=== PATIENT | female | born 1935 | race Caucasian/White ===

== ENCOUNTER 2020-04-30 12:18 | Emergency (ER) | payer MEDICARE, MEDICAID ==
[~2020-04-30] VITALS: Ht 170.2 cm; Wt 97.1 kg
[2020-04-30] MEDS ORDERED: ARTIFICIAL TEAR1510 OPHTHALMIC (12:23)
[2020-04-30] MEDS ORDERED: NORVASC5 M1 PO (12:23)
[2020-04-30] MEDS ORDERED: LIPITOR 20 MG T20 M1 PO (12:23)
[2020-04-30] MEDS ORDERED: AYR50 ML NASAL (12:24)
[2020-04-30] MEDS ORDERED: DULCOLAX10 MG RECTAL (12:24)
[2020-04-30] MEDS ORDERED: VITAMIN D31250 MC1 PO (12:25)
[2020-04-30] MEDS ORDERED: ARICEPT10 M1 PO (12:26)
[2020-04-30] MEDS ORDERED: DEPAKOTE125 MG PO (12:26)
[2020-04-30] MEDS ORDERED: IMODIUM A-D2 MG PO (12:27)
[2020-04-30] MEDS ORDERED: LASIX 40 MG TAB40 MG PO (12:27)
[2020-04-30] MEDS ORDERED: MULTIVITAMINS PO (12:28)
[2020-04-30] MEDS ORDERED: MILK OF MA400 MG/5 M PO (12:28)
[2020-04-30] MEDS ORDERED: MEMANTINE HCL10 MG PO (12:28)
[2020-04-30] MEDS ORDERED: COZAAR100 MG PO (12:28)
[2020-04-30] MEDS ORDERED: KLOR-CON 10 ER10 MEQ PO (12:29)
[2020-04-30] MEDS ORDERED: PRADAXA75 MG PO (12:29)
[2020-04-30] MEDS ORDERED: NUEDEXTA 20-101 EACH PO (12:29)
[2020-04-30] MEDS ORDERED: TIZANIDINE HCL2 M1 PO (12:30)
[2020-04-30] MEDS ORDERED: SPIRONOLACTONE25 MG PO (12:30)
[2020-04-30] MEDS ORDERED: ONDANSETRON ODT4 MG PO (12:31)
[2020-04-30 13:17] LABS: ABSOLUTE BASOPHILS 0.1 thou/uL (0.0-0.2); ABSOLUTE LYMPHOCYTES 0.9 thou/uL (0.8-5.3); ABSOLUTE MONOCYTES 0.7 thou/uL (0.0-1.2); ABSOLUTE NEUTROPHILS 4.6 thou/uL (1.6-8.1); BASOPHILS 1.3 %; EOSINOPHILS 0.3 %; HEMATOCRIT 35.4 % (37.0-47.0); LYMPHOCYTES 13.8 %; MCHC 33.9 g/dL (28.0-37.0); MCV 88.6 fL (80.0-100.0); MONOCYTES 11.6 %; MPV 7.6 fl. (7.2-11.1); NUCLEATED RBCS 0 /100WBC; PLATELET COUNT* 270 thou/uL (150-400); RBC 3.99 mil/uL (4.20-5.00); WBC 6.3 thou/uL (4.0-11.0)
[2020-04-30 13:22] LABS: CALCIUM 8.8 mg/dL (8.5-10.1); CREATININE 1.1 mg/dL (0.6-1.3); POTASSIUM 4.2 mmol/L (3.5-5.1)
[2020-04-30 13:27] LABS: ALBUMIN 2.8 g/dL (3.4-5.0); TOTAL BILIRUBIN 0.3 mg/dL (<0.1-1.0); TOTAL PROTEIN 6.9 g/dL (6.4-8.2)
[2020-04-30 14:00] VITALS: BP 140/63
== END 2020-04-30 16:49 | disposition home or self-care (01) ==
LOC: M.ERS 12:18
PROVIDERS: Physician Assistant
DX: U07.1 COVID-19 (principal); I10 Essential (primary) hypertension; I48.91 Unspecified atrial fibrillation; Z88.1 Allergy status to other antibiotic agents; Z91.013 Allergy to seafood; Z79.899 Other long term (current) drug therapy; Z95.0 Presence of cardiac pacemaker

== ENCOUNTER 2020-05-03 13:08 | Inpatient (IN) | payer MEDICARE, MEDICAID ==
[~2020-05-03] VITALS: Ht 167.6 cm; Wt 92.5 kg
[2020-05-03 04:30] VITALS: BP 126/66
[~2020-05-03 13:08] MED LIST: ARICEPT10 M1 PO; ARTIFICIAL TEAR1510 OPHTHALMIC; AYR50 ML NASAL; COZAAR100 MG PO; DEPAKOTE125 MG PO; DULCOLAX10 MG RECTAL; IMODIUM A-D2 MG PO; KLOR-CON 10 ER10 MEQ PO; LASIX 40 MG TAB40 MG PO; LIPITOR 20 MG T20 M1 PO; MEMANTINE HCL10 MG PO; MILK OF MA400 MG/5 M PO; MULTIVITAMINS PO; NORVASC5 M1 PO; NUEDEXTA 20-101 EACH PO; ONDANSETRON ODT4 MG PO; PRADAXA75 MG PO; SPIRONOLACTONE25 MG PO; TIZANIDINE HCL2 M1 PO; VITAMIN D31250 MC1 PO
[2020-05-03 13:14] VITALS: BP 114/54
[2020-05-03 13:53] LABS: ABSOLUTE LYMPHOCYTES 1.2 thou/uL (0.8-5.3); ABSOLUTE MONOCYTES 0.4 thou/uL (0.0-1.2); ABSOLUTE NEUTROPHILS 3.1 thou/uL (1.6-8.1); BASOPHILS 0.5 %; EOSINOPHILS 0.1 %; HEMATOCRIT 36.3 % (37.0-47.0); MCH 29.8 pg (26.0-34.0); MCV 90.3 fL (80.0-100.0); MONOCYTES 7.9 %; MPV 7.8 fl. (7.2-11.1); NUCLEATED RBCS 0 /100WBC; PLATELET COUNT* 205 thou/uL (150-400); POLYS 66.5 %; RBC 4.02 mil/uL (4.20-5.00); RDW-CV 16.3 % (10.5-14.5); WBC 4.6 thou/uL (4.0-11.0)
[2020-05-03 14:02] LABS: CALCIUM 8.5 mg/dL (8.5-10.1); CREATININE 1.4 mg/dL (0.6-1.3)
[2020-05-03 14:05] LABS: APTT 35.8 Seconds (25.0-31.3); INR 1.1; PROTIME 11.9 Seconds (9.20-11.50)
[2020-05-03 14:09] LABS: URINE BILIRUBIN NEGATIVE (Negative); URINE BLOOD TRACE (Negative); URINE CLARITY CLEAR; URINE COLOR YELLOW; URINE GLUCOSE-RANDOM NEGATIVE (Negative); URINE KETONES NEGATIVE (Negative); URINE LEUKOCYTES-REFLEX TRACE (Negative); URINE NITRITE-REFLEX POSITIVE (Negative); URINE PROTEIN NEGATIVE (Negative); URINE UROBILINOGEN 0.2 E.U./dl (0.2-1.0)
[2020-05-03 14:13] LABS: ALBUMIN 2.4 g/dL (3.4-5.0); TOTAL BILIRUBIN 0.3 mg/dL (<0.1-1.0); TOTAL PROTEIN 6.5 g/dL (6.4-8.2)
[2020-05-03 14:14] LABS: INFLUENZA A ANTIGEN Negative (Negative); INFLUENZA B ANTIGEN Negative (Negative)
[2020-05-03 14:24] LABS: BACTERIA-REFLEX >30 Many /HPF (None Seen); CASTS None Seen /LPF (None Seen); CRYSTALS None Seen /LPF (None Seen); MUCUS 0-3 Light strn/LPF (None Seen); SQUAMOUS NONE SEEN /LPF (0-3); URINE RBC 0-2 Rare /HPF (0-2); URINE WBC-REFLEX 6-15 Few /HPF (0-5)
[2020-05-03 16:08] VITALS: BP 126/66
--- NOTE | 2020-05-03 16:35 | EKG ---
[place] [address] ELECTROCARDIOGRAM REPORT Name: ENRIQUEMITA Room: [address] ADM IN .R.#: [id number] Admission: 05/03/20 Attend Phys: Horacio Gonzalez Discharge: Date of : 31 Date of Service: 05/03/20 1342 Report #: [id number] THIS REPORT FOR: //name// [facility] ED Test Date: 2020-05-03 Test Time: 13:42:54 Pat Name: MITA NUNEZ Department: Room: [facility] Gender: F General Counsel: NUBIA : 1935 Requested By: Tiara Abdul Order Number: [id number] MD: Deondre Hoskins Measurements Intervals [place] Rate: 60 P: 0 SC: 174 QRS: -66 QRSD: 158 T: 90 QT: 462 QTc: 462 Interpretive Statements Ventricular-paced rhythm No further analysis attempted due to paced rhythm Baseline wander in lead(s) II No previous ECG available for comparison Electronically Signed On 05-03-2020 16:35:26 BUCKRAM SEWER by Deondre Hoskins [email or web address] <ELECTRONICALLY SIGNED> By: Deondre Hoskins MD, [facility] 05/03/20 1635 1342 1342 Deondre Hoskins MD, [facility] /EPI
[2020-05-03 16:45] VITALS: BP 164/59
--- NOTE | 2020-05-03 19:17 | NUR ---
PT ARRIVED TO ROOM AT 1645, VSS. SEVERE DEMENTIA, PT COMBATIVE AND UNABLE TO ASSESS FOR HEALTH HISTORY. INCONTINENT FOR BOWEL AND URINE. NO S/S RESP DISTRESS ON ROOM AIR. SB WITH BBB ON MONITOR. FLUIDS INFUSING PER ED REPORT. AWAITING ASSESSMENT FROM HOSPITALIST TEAM FOR FURTHER ORDERS.
[2020-05-03 21:30] VITALS: BP 96/49
--- NOTE | 2020-05-04 04:41 | NUR ---
PT IS NEW ADMIT, SHE IS FROM LOCAL FACILITY AND HAS A HX OF DEMENTIA. SHE IS ALERT, EASILY AGGITATED AND COMBATIVE. SHE IS LYING IN BED AT TIME OF ASSESSMENT. PT IS V-PACED ON TELE MONITOR, LUNGS DIMINISHED THROUGHOUT AND SHALLOW BREATHING ON ROOM AIR, SATS APPROPRIATELY WITH NO COUGH NOTED. ABD OBESE,ROUND AND SOFT. SHE IS INCONTINENT OF STOOL AND URINE. SHE HAS HAD A MOSTLY LIQUID STOOL THIS PM. SKIN INTACT, ORAL CARE DONE AND MOISTURIZER APPLIED TO LIPS. SIPS OF SPRITE ENCOURAGED.PT IS NONVERBAL AND DOES NOT MAKE NEEDS KNOWN. BED ALARM ON FOR SAFETY, WCTM.
[2020-05-04 05:36] VITALS: BP 153/56
[2020-05-04 08:00] VITALS: BP 130/64
[2020-05-04 11:52] VITALS: BP 179/57
[2020-05-04 16:08] VITALS: BP 130/75
--- NOTE | 2020-05-04 17:00 | NUR ---
PT.IS FROM LTC AT [facility]. SHE IS NORMALLY WC OR BED BOUND. IS NON VERBAL AT THIS TIME. IS A DNR. WILL CONTACT SMM AND DAUGHTER TO SEE IF THERE IS DPOA PAPERWORK FOR CHART.
--- NOTE | 2020-05-04 19:28 | NUR ---
NO ACUTE EVENTS, VSS. Q2H AND PRN TURNS WITH ASSIST, HIGH FALL RISK PRECAUTIONS IN PLACE. BASELINE DEMENTIA, REORIENTED WITH EACH INTERACTION. NONVERBAL DURING THIS SHIFT.
[2020-05-04 20:00] VITALS: BP 114/51
[2020-05-05] VITALS: BP 144/80
--- NOTE | 2020-05-05 05:06 | NUR ---
PT CONFUSED & COMBATIVE. MOSTLY NONVERBAL. SAT 90% ON RA. LOW GRADE TEMP. INCONTINENT FOR BLADDER AND BOWEL. IVF INFUISING ORDERED. HOURLY ROUNDINGS, TURNS MADE. WILL CONTINUE TO MONITOR.
[2020-05-05 05:07] LABS: ABSOLUTE LYMPHOCYTES 1.3 thou/uL (0.8-5.3); ABSOLUTE MONOCYTES 0.3 thou/uL (0.0-1.2); BASOPHILS 0.3 %; HEMATOCRIT 35.7 % (37.0-47.0); HEMOGLOBIN 11.7 gm/dL (12.0-15.0); MCH 29.4 pg (26.0-34.0); MCHC 32.8 g/dL (28.0-37.0); MCV 89.5 fL (80.0-100.0); MONOCYTES 7.3 %; MPV 7.7 fl. (7.2-11.1); NUCLEATED RBCS 0 /100WBC; PLATELET COUNT* 175 thou/uL (150-400); POLYS 64.4 %; RBC 3.99 mil/uL (4.20-5.00); RDW-CV 16.5 % (10.5-14.5); WBC 4.6 thou/uL (4.0-11.0)
[2020-05-05 05:25] LABS: CALCIUM 7.9 mg/dL (8.5-10.1); POTASSIUM 3.8 mmol/L (3.5-5.1)
[2020-05-05 09:10] VITALS: BP 124/93
--- NOTE | 2020-05-05 11:26 | NUR ---
ASSUMED CARE OF PT THIS AM AROUND 0715- REGISTRY RN IN PLACE ORDERED, V-PACED- UPON ASSESSMENT PT NOTED TO BE RESTING IN BED- PT A&O X1, MINIMAL RESPONSESS NOTED PER PT WHEN QUESTIONING- PT NOTED TO BECOME IMPULSIVE AND SWATS AT STAFF AT TIMES- INCONT OF B/B- Q [address] INDICATED- DIMINISHED LUNG SOUNDS NOTED- DYSPNEA NOTED ON EXERTION- VSS, O2 SAT 90-91% ON RA- ABD SOFT/OBESE/NON-TENDER, BS X4 QUADS- LAST BM REPORTED ON PRIOR SHIFT-ASSISTANCE REQUIRED WITH MEALS, GOOD PO INTAKE NOTED THIS AM- IV NOTED TO LEFT AC INTACT, IVF INFUSSING PRESCIBED- IV ABT GIVEN THIS AM PRESCRIBED- POSTIVE BLOOD CULTURES NOTED THIS AM, NOTIFIED WITH ID CONSULTED THIS AM-CHEST X-RAY COMPLETED THIS AM WITH RESULTS NOTED IN [employer]- REDNESS NOTED TO BOTTOM WITH BARRIOR CREAM APPLIED INDICATED- HEELS OFF LOADED ON PILLOW LAURA- CALL LIGHT AND PERSONAL BELONGINGS WITH IN REACH- HOURLY ROUNDS IN PLACE R/T SAFETY/NEEDS- ALL NEEDS MET AT THIS TIME-WCTM
[2020-05-05 12:00] VITALS: BP 162/55
--- NOTE | 2020-05-05 12:00 | NUR ---
POSITIVE BLOOD CULTURE 05/03. REPEAT FROM TODAY PENDING. URINE DRUG SENSITIVITY PENDING. ON ROOM AIR. NO WEEKEND DISCHARGE ANTICIPATED.
[2020-05-05 15:58] VITALS: BP 153/63
[2020-05-05 20:00] VITALS: BP 148/52
[2020-05-06 00:39] VITALS: BP 162/61
[2020-05-06 05:16] VITALS: BP 103/58
--- NOTE | 2020-05-06 05:20 | NUR ---
PT ORIENTED TO HERSELF, CONFUSED. SAT 90% ON RA. FEBRILE. IVF INFUISING. PT INCONTINENT. TURNS, HOURLY ROUNDINGS DONE. WILL CONTINUE TO MONITOR.
[2020-05-06 08:00] VITALS: BP 112/37
[2020-05-06 14:00] VITALS: BP 130/44
--- NOTE | 2020-05-06 18:26 | NUR ---
RECEIVED REPORT AROUND 714. ASSUMED CARE. IV INTACT LEFT FOREARM. HEART MONTIOR ATTACHED AT [facility]. MEDS GIVEN PER JUN. HOURLY ROUNDING PERFORMED. O2 PUT ON PT THIS MORNING DUE TO SAT'S BEING IN 80'S. SAT'S IN 90'S. RA NOW. PT LYING IN BED. PT IS A FEEDER. NONVERBAL. PT ATTEMPTS TO HIT ANYONE WHO TOUCHES HER. VS AND ASSESSMENT CHARTED. NOTIFIED OF PT LABORED BREATHING. LUNGS SOUND CLEAR WITH SOME COARSES. PT IS MOUTH BREATHING AND AUDIBLE WHEEZING THROUGH MOUTH. NOTIFIED. NO NEW ORDERS RECIEVED AT THIS TIME. CALL LIGHT WITHIN REACH. WILL CONTINUE TO MONITOR.
--- NOTE | 2020-05-06 19:38 | NUR ---
RAPID RESPONSE CALLED ON PT. PT SWEATING PROFUSELY. LABORED BREATHING. SAT'S IN 70'S. NEW IV PLACED IN RIGHT AC. BIPAP PLACED. ANTON INSERTED TO MONITOR LASIX OUTPUT. ONETIME IV LASIX GIVEN. HEAVY MEDIA OPERATOR NOTIFIED. PT LYING IN BED. CALL LIGHT SHERMANIHIN REACH. WILL CONTINUE TO MONITOR.
[2020-05-06 20:31] LABS: ALBUMIN 2.3 g/dL (3.4-5.0); CALCIUM 7.9 mg/dL (8.5-10.1); CREATININE 1.2 mg/dL (0.6-1.3); POTASSIUM 3.5 mmol/L (3.5-5.1); TOTAL BILIRUBIN 0.4 mg/dL (<0.1-1.0); TOTAL PROTEIN 6.7 g/dL (6.4-8.2)
[2020-05-06 22:06] LABS: BE -2.6 mmol/L (-2 to +3); PCO2 27.7 mmHg (35.0-45.0); pH 7.474 (7.340-7.450)
[2020-05-06 22:07] LABS: PO2 181.5 mmHg (75.0-100.0)
[2020-05-07] VITALS (7 sets, daily range): BP systolic 105–145; BP diastolic 44–66
--- NOTE | 2020-05-07 04:45 | NUR ---
PT NONVERBAL. ON BIPAP. MEDS GIVEN ORDERED. PT TAKES PILLS WITH PUDDING. ANTON IN PLACE. OUTPUT CHARTED. PT SLEPT MOST OF THE NIGHT. TURNS, HOURLY ROUNDINGS DONE. WILL CONTINUE TO MONITOR.
[2020-05-07] MEDS ORDERED: ACIDOPHILUS1 EAC4 PO (08:51)
[2020-05-07 09:24] LABS: ALBUMIN 2.2 g/dL (3.4-5.0); CALCIUM 7.6 mg/dL (8.5-10.1); CREATININE 1.2 mg/dL (0.6-1.3); POTASSIUM 3.5 mmol/L (3.5-5.1); TOTAL BILIRUBIN 0.4 mg/dL (<0.1-1.0); TOTAL PROTEIN 5.3 g/dL (6.4-8.2)
[2020-05-07] MEDS ORDERED: CIPRO500 M1 PO (12:36)
[2020-05-07] MEDS ORDERED: AUGMENTIN 875-1 EACH PO (12:57)
[2020-05-07 13:27] LABS: ABSOLUTE LYMPHOCYTES 0.8 thou/uL (0.8-5.3); ABSOLUTE MONOCYTES 0.1 thou/uL (0.0-1.2); ABSOLUTE NEUTROPHILS 4.6 thou/uL (1.6-8.1); BASOPHILS 0.2 %; HEMOGLOBIN 11.2 gm/dL (12.0-15.0); LYMPHOCYTES 14.8 %; MCH 29.4 pg (26.0-34.0); MCHC 32.8 g/dL (28.0-37.0); MCV 89.6 fL (80.0-100.0); MONOCYTES 2.3 %; MPV 8.3 fl. (7.2-11.1); NUCLEATED RBCS 0 /100WBC; PLATELET COUNT* 197 thou/uL (150-400); POLYS 82.7 %; RDW-CV 16.9 % (10.5-14.5); WBC 5.6 thou/uL (4.0-11.0)
[2020-05-07 15:14] LABS: CALCIUM 8.3 mg/dL (8.5-10.1); CREATININE 1.3 mg/dL (0.6-1.3); MAGNESIUM 2.1 mg/dL (1.8-2.4); PHOSPHORUS* 3.5 mg/dL (2.5-4.9)
--- NOTE | 2020-05-07 19:10 | NUR ---
ASSESSMENT DOCUMENTED. MEDS GIVEN PER E-MAR. IV PATENT. PT NON-VERBAL THIS SHIFT. DISCHARGE ORDERS RECIEVED. PT HAD EPISODE OF V-FIB THIS SHIFT. DR NOTIFIED, DISCHARGE HELD, ORDERS RECIEVED. FAMILY UPDATED ON PLAN OF CARE. ISOLATION MAINTAINED. FALL PRECAUTIONS IN PLACE.
[2020-05-08 01:19] VITALS: BP 142/76
[2020-05-08 05:36] VITALS: BP 123/53
[2020-05-08 07:50] VITALS: BP 103/52
--- NOTE | 2020-05-08 10:10 | CON ---
[facility] [address] [place] [address] CONSULTATION Name: MITA NUNEZ Room: [address] ADM IN M.R.#: [id number] Admission: 05/03/20 Attend Phys: Eve Tate Discharge: Date of : 31 Report #: [id number] THIS REPORT FOR: cc: Rafael Badillo MD, Todd A. MD ~ Isauro Hutchins MD [facility] DATE OF SERVICE: 05/08/2020 CARDIOLOGY CONSULTATION HISTORY OF PRESENT ILLNESS: The patient is an 84-year-old white female who I was asked to see in the hospital today after she was noted to have an abnormal ECG. The history is obtained from the current chart. Unfortunately, the patient has severe dementia and is noncommunicative. There are no family members available. The patient lives in a shelter here in [place]. According to shelter records, the patient has severe dementia. She is basically bedridden. She was brought to the Emergency Room 5 days ago by ambulance. She was COVID positive. She had a fever and had increasing shortness of breath. There were no other complaints. She was admitted to the COVID unit. She was noted to be paced on the monitor. However, yesterday afternoon, she was lying in bed and on the monitor, she had an irregular rapid heart rhythm consistent with ventricular fibrillation. The patient was a no code blue. There was no change in her status at that time. The patient subsequently converted to a paced rhythm. Cardiology consultation requested. PAST MEDICAL HISTORY: Otherwise significant for urinary retention, atrial fibrillation, pacemaker insertion, dementia. MEDICATIONS: AT shelter include amlodipine for high blood pressure, atorvastatin for high cholesterol, Aricept, Imodium, Lasix, losartan, Pradaxa, spironolactone. ALLERGIES: SHE HAS AN ALLERGY TO BIAXIN. SOCIAL HISTORY: Unknown. FAMILY HISTORY: Cannot be obtained. REVIEW OF SYSTEMS: Significant for history of hypertension, hyperlipidemia, history of falls, edema. PHYSICAL EXAMINATION: GENERAL: Revealed an elderly, frail-appearing female, lying in bed. [place] [address] CONSULTATION Name: MITA NUNEZ Room: [address]#: [id number] Admission: 05/03/20 Attend Phys: Eve Tate Discharge: Date of : 31 Report #: [id number] VITAL SIGNS: She had a blood pressure of 120/60, pulse is 60. She is afebrile. HEENT: She was anicteric. Conjunctivae are pink. Mucous membranes appear dry. NECK: Veins do not appear distended. CHEST: Clear to auscultation. CARDIOVASCULAR: Regular rate and rhythm. ABDOMEN: Obese. EXTREMITIES: Had no pitting edema. SKIN: Cool and dry. NEUROLOGIC: She would withdraw from pain. She would not follow commands. RADIOLOGICAL DATA: Her ECG on admission showed atrial fibrillation with a ventricular paced rhythm. Her workup so far, she had a portable chest x-ray on admission that showed cardiomegaly, mild increase in vascular markings, evidence of a permanent pacemaker. LABORATORY WORK: Sodium 149, potassium 3.0, creatinine 1.3, glucose 81. Liver function studies were normal. Troponin 0.06. BNP 1828. TSH 0.3. White blood cell count 5.6, hematocrit 34.0. Her COVID antigen stat test was positive. Urinalysis, trace blood, trace leukocytes. IMPRESSION AND RECOMMENDATIONS: 1. Abnormal cardiac rhythm on the monitor suggestive of ventricular fibrillation. I suspect this represents motion artifact. The patient is severely demented and is a no code blue. I would not treat at this time. 2. COVID-19 pneumonia. The patient is a no code blue. 3. Hypokalemia. I would replace potassium. 4. Hypertension. The patient is on a calcium sean at the shelter. 5. Hyperlipidemia. The patient has been on a statin drug. 6. Severe dementia. I would consider comfort care. <ELECTRONICALLY SIGNED> By: Isauro Hutchins MD, [facility] 05/08/20 1010 0845 [id number] Hutchins MD, FAC /nt
--- NOTE | 2020-05-08 12:00 | NUR ---
PT.WITH INCREASE IN O2 REQUIREMENTS. ID RECOMMENDED REMDESIVIR AND ORDERED BY CONTINUES AON IV SOLUDMEDROL WELL. ON 4L/NC
--- NOTE | 2020-05-08 12:01 | 2DMMODE ---
[place] [address] 2 D/M-MODE ECHOCARDIOGRAM Name: MITA NUNEZ Ladonna Room: [address] IN ..#: [id number] Admission: 05/03/20 Attend Phys: Horacio Gonzalez Discharge: Date of : 31 Date of Service: 05/08/20 1201 Report #: [id number] THIS REPORT FOR: cc: Rafael Badillo MD, Todd A. MD Blick, David R. MD [facility] ~ APPROVED REPORT Study performed: 05/08/2020 10:20:31 EXAM: Comprehensive 2D, Doppler, and color-flow Echocardiogram Patient Location: In-Patient Room #: 114 Status: routine BSA: 2.02 HR: 90 bpm BP: 123/53 mmHg Rhythm: Atrial Fibrillation Other Information Study Quality: Adequate Indications Atrial Fibrillation v fib covid 2D Dimensions IVSd: 8.60 (7-11mm) LVOT Diam: 19.12 (18-24mm) LVDd: 49.41 mm PWd: 8.34 (7-11mm) Ascending Ao: 30.42 (22-36mm) LVDs: 20.67 (25-40mm) Aortic Root: 28.73 mm Volumes Left Atrial Volume (Systole) LA ESV Index: 64.80 mL/m2 Aortic Valve AoV Peak Dalton.: 1.32 m/s AO Peak Gr.: 6.97 mmHg LVOT Max P.61 mmHg AO Mean Gr.: 3.92 mmHg LVOT Mean P.28 mmHg LVOT Max V: 0.81 m/s AO V2 VTI: 25.95 cm LVOT Mean V: 0.52 m/[place] [address] 2 D/M-MODE ECHOCARDIOGRAM Name: MITA NUNEZ Room: [address] IN .R.#: [id number] Admission: 05/03/20 Attend Phys: Horacio Gonzalez Discharge: Date of : 31 Date of Service: 05/08/20 1201 Report #: [id number] LUIS (VTI): 1.83 cm2 LVOT V1 VTI: 16.50 cm Pulmonary Valve PV Peak Dalton.: 0.86 m/s PV Peak Gr.: 2.95 mmHg Tricuspid Valve RAP Estimate: 10.00 mmHg TR Peak Gr.: 33.94 mmHg RVSP: 42.00 mmHg PA Pressure: 42.00 mmHg Left Ventricle The left ventricle is normal size. There is normal LV segmental wall motion. There is normal left ventricular wall thickness. Left ventricular systolic function is normal. The left ventricular ejection fraction is within the normal range. This study is not technically sufficient to allow evaluation of the LV diastolic function due to atrial fibrillation. Right Ventricle The right ventricle is normal size. The right ventricular systolic function is normal. Pacemaker lead is present in the right ventricle. Atria Left atrium is severely dilated. Right atrium is borderline dilated. Aortic Valve Mild aortic valve sclerosis. No aortic regurgitation is present. There is no aortic valvular stenosis. Mitral Valve There is mitral annular calcification. The mitral valve is normal in structure. Mild mitral regurgitation. No evidence of mitral valve stenosis. Tricuspid Valve The tricuspid valve is normal in structure. Mild tricuspid regurgitation. estimated pa pressure 40 mm Hg Pulmonic Valve The pulmonary valve is normal in structure. Mild pulmonic regurgitation. Great Vessels The aortic root is normal in size. [place] [address] 2 D/M-MODE ECHOCARDIOGRAM Name: MITA NUNEZ Room: [address] IN ..#: [id number] Admission: 05/03/20 Attend Phys: Horacio Gonzalez Discharge: Date of : 31 Date of Service: 05/08/20 1201 Report #: [id number] Pericardium There is no pericardial effusion. <Conclusion> Left ventricular systolic function is normal. The left ventricular ejection fraction is within the normal range. Left atrium is severely dilated. Mild aortic valve sclerosis. Mild mitral regurgitation. Mild tricuspid regurgitation. estimated pa pressure 40 mm Hg <ELECTRONICALLY SIGNED> By: Isauro Hutchins MD, FACC 05/08/20 1201 120 00 Isauro Hutchins MD, [facility] /INF
[2020-05-08 12:51] VITALS: BP 124/64
[2020-05-08 17:30] VITALS: BP 133/67
--- NOTE | 2020-05-08 19:18 | NUR ---
ASSESSMENT DOCUMENTED. MEDS GIVEN PER E-MAR. IV PATENT. PT MINIMALLY VERBAL THIS SHIFT. FAMILY UPDATED ON PLAN OF CARE. PT ON 4L NC THIS SHIFT. ISOLATION MAINTAINED.
[2020-05-08 20:25] VITALS: BP 134/64
[2020-05-09] VITALS: BP 137/47
--- NOTE | 2020-05-09 03:00 | NUR ---
ASSUMED CARE OF PT AT 1900. PT IS CONFUSED AND AGITATED AT TIMES. VSS. NO COMPLAINTS OF PAIN. PT IS V PACEDON THE TELEMETRY. PT IS RESTING COMFORTABLY IN BED. RESPIRATIONS ARE EVEN AND NONLABORED. WILL CONTINUE TO MONITOR PT.
[2020-05-09 04:00] VITALS: BP 136/48
[2020-05-09 05:09] LABS: HEMATOCRIT 33.4 % (37.0-47.0); HEMOGLOBIN 10.9 gm/dL (12.0-15.0); MCH 28.9 pg (26.0-34.0); MCHC 32.6 g/dL (28.0-37.0); MCV 88.7 fL (80.0-100.0); MPV 8.8 fl. (7.2-11.1); NUCLEATED RBCS 0 /100WBC; RBC 3.76 mil/uL (4.20-5.00); RDW-CV 16.6 % (10.5-14.5); WBC 11.8 thou/uL (4.0-11.0)
[2020-05-09 05:24] LABS: PLATELET COUNT* 280 thou/uL (150-400)
[2020-05-09 05:34] LABS: ALBUMIN 2.1 g/dL (3.4-5.0); CALCIUM 8.5 mg/dL (8.5-10.1); CREATININE 1.6 mg/dL (0.6-1.3); POTASSIUM 3.6 mmol/L (3.5-5.1); TOTAL BILIRUBIN 0.4 mg/dL (<0.1-1.0); TOTAL PROTEIN 6.3 g/dL (6.4-8.2)
[2020-05-09 06:26] LABS: ABSOLUTE LYMPHOCYTES 1.1 thou/uL (0.8-5.3); ABSOLUTE MONOCYTES 0.1 thou/uL (0.0-1.2); ABSOLUTE NEUTROPHILS 10.6 thou/uL (1.6-8.1); LARGE PLATELETS RARE; PLATELET ESTIMATE ADEQUATE
[2020-05-09 06:27] LABS: ANISOCYTOSIS 1+
[2020-05-09 15:00] VITALS: BP 140/50
--- NOTE | 2020-05-09 16:30 | NUR ---
PT'S DAUGHTER INFORMS ME THAT PPM/AICD IS [employer] MODEL#6290, SERIAL NUMBER# IS [id number]. PHONE [phone], OR [phone]. FAMILY WILL DECIDE IF THEY WANT TO HAVE PPM/AICD TURNED OFF.
[2020-05-09 16:34] VITALS: BP 140/50
--- NOTE | 2020-05-09 16:52 | NUR ---
DISCUSSED IN ROUNDS THIS AM. PPN TO BE STARTED. PT.NOT EATING WELL. REMAINS ON BIPAP AT NIGHT AND 15L 02 PER [facility].
[2020-05-09 21:40] VITALS: BP 134/76
--- NOTE | 2020-05-09 23:29 | NUR ---
ASSUMED CARE OF PT AT 1900. PT IS CONFUSED. VSS. PERRLA. NO SIGNS OR SYMPTOMS OF PAIN. PT IS ON BIPAP AT 60 PERCENT. PT IS INCONTINANT. PT IS V PACED. PT IS SLEEPING QUIETLY IN BED. RESPIRATIONS ARE EVEN AND NONLABORED. WILL CONTINUE TO MONITOR PT.
[2020-05-10] VITALS: BP 149/67
[2020-05-10 04:00] VITALS: BP 149/62
[2020-05-10 04:47] LABS: ABSOLUTE LYMPHOCYTES 0.5 thou/uL (0.8-5.3); ABSOLUTE MONOCYTES 0.5 thou/uL (0.0-1.2); ABSOLUTE NEUTROPHILS 10.5 thou/uL (1.6-8.1); BASOPHILS 0.2 %; HEMATOCRIT 32.4 % (37.0-47.0); HEMOGLOBIN 10.4 gm/dL (12.0-15.0); LYMPHOCYTES 4.7 %; MCH 28.6 pg (26.0-34.0); MCHC 32.2 g/dL (28.0-37.0); MONOCYTES 4.6 %; MPV 8.6 fl. (7.2-11.1); NUCLEATED RBCS 0 /100WBC; PLATELET COUNT* 321 thou/uL (150-400); POLYS 90.5 %; RBC 3.64 mil/uL (4.20-5.00); RDW-CV 17.3 % (10.5-14.5); WBC 11.6 thou/uL (4.0-11.0)
[2020-05-10 05:05] LABS: ALBUMIN 2.1 g/dL (3.4-5.0); CALCIUM 8.5 mg/dL (8.5-10.1); CREATININE 1.3 mg/dL (0.6-1.3); MAGNESIUM 2.9 mg/dL (1.8-2.4); POTASSIUM 3.2 mmol/L (3.5-5.1); TOTAL BILIRUBIN 0.4 mg/dL (<0.1-1.0)
[2020-05-10 08:30] VITALS: BP 142/60
--- NOTE | 2020-05-10 16:00 | NUR ---
PT.MADE COMFORT CARE TODAY. DISCUSSED WITH DAUGHTER, AICD TO BE TURNED OFF. PT.IS NOT EATING AND NON VERBAL. CM WILL SPEAK WITH DAUGHTER TOMORROW ABOUT HOSPICE IF PT SURVIVES THE NIGHT.
--- NOTE | 2020-05-10 21:20 | NUR ---
Pt's family called to confirm that they would like for pt's defibrillator to be turned off today and for patient to go on comfort care. Pt's family also talked with Dr. Haas at this time. Pt gavi was contacted at this time so that family could video chat with patient. This nurse contacted [employer] to have defibrillator turned off. [employer] informed us that she does not have a defibrillator, only a pacemaker and they would not turn pacemaker off. Dr. Haas updated. Pt's family updated. Family wishes to still continue as comfort care and was educated on keeping pt comfortable. Pts family agreeable to plan. Pt slept most of the day and seems more calm and less combative than previous days. Pt resting comfortably in bed. BiPap at night discontinued. O2 via NC continued. Bed in low position, Bed alarm on, call light within reach.
--- NOTE | 2020-05-10 22:10 | CON ---
[address] [address] CONSULTATION Name: MITA NUNEZ Room: [address] IN M.R.#: [id number] Admission: 05/03/20 Attend Phys: Eve Tate Discharge: Date of : 31 Report #: [id number] THIS REPORT FOR: cc: Rafael Badillo MD, Todd A. MD ~ Cullen Wilson MD DATE OF SERVICE: 05/09/2020 CONSULT REQUESTED BY: Dr. Abhinav Haas. INDICATION FOR CONSULTATION: Acute hypoxemic respiratory failure secondary to COVID-19. HISTORY OF PRESENT ILLNESS: An 84-year-old female. The patient is a resident of a nursing facility. She has a history of dementia, is now admitted on 05/03/2020 with COVID-19. The patient initially was not on supplemental oxygen. She started desaturating on the 16th when she was placed on 2 liters nasal cannula. Since then, there has been a progressive increase in oxygen needs reaching 15 liters this morning. There has been some improvement since then, but she is still requiring 9 liters of oxygen to maintain O2 saturation in the low 90s. The patient is reported to have initially presented with shortness of breath and weakness. There is no known history of fever. The patient is not able to provide any meaningful history. The patient is reported to have at one point had a ventricular fibrillation rhythm on the monitor for which she was evaluated by Cardiology earlier this admission. There is no code blue recorded. The patient is markedly drowsy at the time of my evaluation. She appears to have had a poor oral intake. There are severe electrolyte abnormalities. She appears to be intravascularly depleted. Her baseline creatinine is 1.0, current creatinine is 1.6 with a sodium elevated to 156. The patient is hemodynamically stable at this time. She is unable to provide a further history or review of systems. PAST MEDICAL HISTORY: Dementia, hypertension, urinary retention, atrial fibrillation, pacemaker placement, psychosis, pseudobulbar affect. There is a recent echocardiogram with left ventricular ejection fraction reported to be normal with a pulmonary artery systolic of 40. SOCIAL HISTORY: Resident of nursing facility. Information regarding smoking, ethanol use or drug abuse in the past is not available at this time. CURRENT MEDICATIONS: List in [facility] reviewed. HOME MEDICATIONS: [place] [address] CONSULTATION Name: ENRIQUEMITA Room: [address]#: [id number] Admission: 05/03/20 Attend Phys: vEe Tate Discharge: Date of : 31 Report #: [id number] FAMILY HISTORY: The patient is unable to provide family history. ALLERGIES: BIAXIN AND FISH OIL ARE LISTED ALLERGIES. PHYSICAL EXAMINATION: GENERAL: At the time of my examination, the patient was markedly drowsy. VITAL SIGNS: Had a pulse of 76 and a blood pressure of 140/50. She was saturating 94% on 9 liters nasal cannula, respiratory rate 16, afebrile with a temperature of 36.8. HEENT: Head is normocephalic and atraumatic. NECK: Does not show raised JVP, asymmetry, mass or lymph nodes. CHEST: Symmetrical expansion on inspection and palpation. On auscultation, breath sounds are bilaterally equal. I do not hear any added sounds. HEART: Irregular. There is no murmur. ABDOMEN: Soft and nontender. EXTREMITIES: Lower extremities show no edema and no calf tenderness. SKIN: Dry and intact. NEUROLOGICAL: She did move all extremities bilaterally equally and spontaneously. LABORATORY DATA: The patient's chest x-ray from today is reviewed and compared with the patient's previous chest x-rays. There are bilateral infiltrates consistent with COVID-19. There is a pacemaker in place as well. Lab work does indicate severe electrolyte abnormalities in [employer] reviewed. COVID-19 antigen is positive. Arterial blood gas had shown respiratory alkalosis and metabolic acidosis performed on 05/06/2020, pH was 7.474. ASSESSMENT AND PLAN: 1. Acute hypoxemic respiratory failure secondary to COVID-19. I recommend continuing with titrating oxygen, also keep on AVAPS while asleep and if needed, then p.r.n. while awake. 2. COVID-19. The Infectious Disease Service is on the case. I agree with remdesivir. I will continue with corticosteroids; however, I cut back the dose from Solu-Medrol 62.5 mg q.8 hours to dexamethasone 6 mg q.8 hours, which is approximately equivalent to 32 mg of Solu-Medrol q.8 hours. This will also have a left mineralocorticoid activity. I asked pharmacy if remdesivir is compatible with the D5W, but they had no documented use of remdesivir in D5W so it remains diluted in saline. 3. Pulmonary infiltrates. I also agree with covering with broad-spectrum antibiotics for secondary bacterial infections. ID service is managing. 4. Acute renal insufficiency/severe hypernatremia. The patient is on PPN. I called the pharmacy and they told me that it contains approximately 35 mEq of sodium per liter, so this should decrease the sodium level. The patient appears [facility] [address] [place] [address] CONSULTATION Name: MITA NUNEZ Room: [address] IN [facility].#: [id number] Admission: 05/03/20 Attend Phys: Eve Tate Discharge: Date of : 31 Report #: [id number] to have intravascular fluid depletion with possible extravascular access. Considering her respiratory failure, we will need to be cautious in trying to correct his electrolytes will see how the electrolytes respond to current PPN. If the sodium is coming down adequately, we will continue with the same. Otherwise, I will be inclined to discontinue PPN and start her on D5W infusion and continue to replace potassium and then give her some albumin as well. We will repeat electrolytes tomorrow morning and see where we stand. I recommend placing a PICC line as well. 5. High aspiration risk. The patient was markedly drowsy at the time of my evaluation. It is not known to me how awake the patient has been. She does appear to be a high aspiration risk. Recommend treating the patient only if she is fully awake and able to swallow adequately. Otherwise, may consider keeping her n.p.o. If the patient is more awake, then I suggest obtaining a speech consult for a bedside swallow evaluation. 6. Deep vein thrombosis prophylaxis. She is on Lovenox. The patient is critically ill with acute hypoxemic respiratory failure secondary to COVID-19. Total time spent providing critical care to this patient today exceeds 42 minutes. <ELECTRONICALLY SIGNED> By: Cullen Wilson MD 05/10/20 3086 [id number] tati Hinson
[2020-05-11] VITALS: BP 140/70
[2020-05-11 04:00] VITALS: BP 150/53
--- NOTE | 2020-05-11 04:33 | NUR ---
PT ON COMFORT CARE. SLEEPING MOSTLY. ON 2L BY DARIO. QUOC SOUND WITH BREATHING, ROBINUL GIVEN. PT REPOSITIONED FOR COMFORT. WILL CONTINUE TO MONITOR.
[2020-05-11 08:10] VITALS: BP 110/77
[2020-05-11 12:00] VITALS: BP 164/65
--- NOTE | 2020-05-11 16:00 | NUR ---
PER NURSING, PT.HAS BEEN VERY CALM AND RESTFUL TODAY. ONE DOSE OF IV MS EARLY THIS AM. ON VIA VT. PLAN IS FOR PT.TO RETURN TO LTC BED AT [facility] WITH HOSPICE. FAMILY HAS NOT YET MADE A DECISION ON HOSPICE AND/OR AGENCIES.
[2020-05-11 17:13] VITALS: BP 148/67
--- NOTE | 2020-05-11 19:21 | NUR ---
PT SLEPT MOST OF SHIFT. PT DOES NOT SPEAK. PACED ON MONITORS. 2L O2 BY NASAL CANNULA. ANTON PATENT, YELLOW URINE IN COLLECTION BAG. VSS, NO OBVIOUS/VISIBLE SIGNS OF DISCOMFORT. IV TO RAC PATENT, SALINE LOCKED. FAMILY UPDATED BY PHONE. ORAL CARE PROVIDED, PT WOULD BITE DOWN ON ORAL SWABS. PT REPOSITIONED Q2H FOR SKIN INTEGRITY. PT RESTS IN ROOM, CALL LIGHT REMAINS IN REACH.
[2020-05-11 21:00] VITALS: BP 124/63
[2020-05-12 04:55] VITALS: BP 159/69
--- NOTE | 2020-05-12 05:08 | NUR ---
PT ON COMFORT CARE. LETHARGIC. SAT 89-90% ON 2L. ATIVAN GIVEN X 1. ANTON IN PLACE. TURNED FOR COMFORT. WILL CONTINUE TO MONITOR.
[2020-05-12 12:19] VITALS: BP 179/72
[2020-05-12 16:53] VITALS: BP 155/73
--- NOTE | 2020-05-12 17:00 | NUR ---
REMAINS ON COMFORT CARE. STABLE. NO DISCHARGE ORDERS FOR TODAY.
--- NOTE | 2020-05-13 06:08 | NUR ---
NO ACUTE CHANGES THROUGHOUT SHIFT. PT ON COMFORT CARE, COMFORT CARE MEDS GIVEN PER ORDERS. ORAL CARE COMPLETED MULTIPLE TIMES THROUGHOUT SHIFT. PT ONLY MOANS AT TIMES TO STIMULATION.
[2020-05-13 09:15] VITALS: BP 146/65
[2020-05-13] MEDS ORDERED: LORAZEPAM I2 MG/1 ML PO (11:34)
[2020-05-13] MEDS ORDERED: MSL20MG/ML PO (11:34)
--- NOTE | 2020-05-13 15:07 | NUR ---
PT SLEEPING IN BED AT THIS TIME. RESPS ARE EVEN AND UNLABORED. PT GURGLING AT TIMES. IVS TAKEN OUT. CATHETER ALSO TAKEN OUT WELL. SCRIPS SENT WITH PT TO FACILITY. PT REMAINS UNRESPONSIVE. WILL CALL REPORT TO IGNITE.
--- NOTE | 2020-05-13 15:08 | NUR ---
CM INFORMED BY THE PHYSICIAN OF PLAN TO D/C PATIENT BACK TO [facility] WITH HOSPICE. CM SPOEK TO PT'S DTR TO INFORM OF THIS PLAN AND SHE IS IN AGREEMENT. PT'S DTR INFORMS THAT SHE HAS NOT CHOSEN A HOSPICE COMPANY YET AND NEEDS TO SPEAK WITH FAMILY TO DECIDE. CM INFORMED ADMISSIONS AT [facility] TO INFORM OF THE ABOVE INFO AND FAXED PT'S D/C ORDERS, AND HOSPICE EVAL AND TREAT ORDERS TO [facility]. [facility] ADMISSIONS INFORMED OF THE NEED TO ASSIST PT'S DTR IN ARRANGING HOSPICE WHEN PT'S DTR DECIDES. CM ARRNAGED NON-EMERGENT TRANSPORT FOR PT FOR 1530. CM INFORMED THE RN IN-CHARGE OF THE PT OF THE PT'S TIME OF TRANSFER AND WHERE TO CALL REPORT. RN IN AGREEMENT. [facility] PHONE: [phone] FAX: [phone]
--- NOTE | 2020-05-13 16:59 | NUR ---
REPORT CALLED TO JACEK CRISTINA AT [facility] AT 1628. PT LEFT VIA EMS WITH PACKET. PT ON STRETCHER WITH 2L 02. IV AND SLOANE TAKEN OUT. 1649 REPORT TO VERNON AT [facility] AT [phone]. DISCHARGE SUMMARY/MEDS FAXED TO HOSPICE AT [phone] WITH COVER SHEET.
== END 2020-05-13 16:00 | disposition hospice, home (50) | DRG 871 ==
LOC: M.ERS 13:08 → M.TBA-ER 14:24 → M.ORTHSURG 14:24
PROVIDERS: Internal Medicine; Internal Medicine Critical Care Medicine; Nurse Practitioner Family; ADMIT Internal Medicine; ATTEND Internal Medicine
PROC: 5A09357 Assistance with Respiratory Ventilation, Less than 24 Consecutive Hours, Continuous Positive Airway Pressure (ICD-10-PCS; principal; 2020-05-06)
PROC: XW033E5 Introduction of Remdesivir Anti-infective into Peripheral Vein, Percutaneous Approach, New Technology Group 5 (ICD-10-PCS; 2020-05-08)
PROC: 5A0935A Assistance with Respiratory Ventilation, Less than 24 Consecutive Hours, High Flow/Velocity Cannula (ICD-10-PCS; 2020-05-08)
PROC: 5A09357 Assistance with Respiratory Ventilation, Less than 24 Consecutive Hours, Continuous Positive Airway Pressure (ICD-10-PCS; 2020-05-09)
PROC: 5A0935A Assistance with Respiratory Ventilation, Less than 24 Consecutive Hours, High Flow/Velocity Cannula (ICD-10-PCS; 2020-05-09)
PROC: 5A0935A Assistance with Respiratory Ventilation, Less than 24 Consecutive Hours, High Flow/Velocity Cannula (ICD-10-PCS; 2020-05-11)
PROC: 5A0935A Assistance with Respiratory Ventilation, Less than 24 Consecutive Hours, High Flow/Velocity Cannula (ICD-10-PCS; 2020-05-12)
DX: A41.89 Other specified sepsis (principal); U07.1 COVID-19; J12.82 Pneumonia due to coronavirus disease 2019; J96.21 Acute and chronic respiratory failure with hypoxia; G92 Toxic encephalopathy; E87.0 Hyperosmolality and hypernatremia; N30.01 Acute cystitis with hematuria; N17.9 Acute kidney failure, unspecified; F03.90 Unspecified dementia, unspecified severity, without behavioral disturbance, psychotic disturbance, mood disturbance, and anxiety; F29 Unspecified psychosis not due to a substance or known physiological condition; E86.0 Dehydration; I11.0 Hypertensive heart disease with heart failure; I50.9 Heart failure, unspecified; E87.6 Hypokalemia; B96.20 Unspecified Escherichia coli [E. coli] as the cause of diseases classified elsewhere; E78.5 Hyperlipidemia, unspecified; Z79.899 Other long term (current) drug therapy; Z95.0 Presence of cardiac pacemaker; Z88.1 Allergy status to other antibiotic agents; Z91.048 Other nonmedicinal substance allergy status